=== PATIENT | male | born 1950 | race Caucasian/White ===

== ENCOUNTER → 2016-11-06 | Outpatient (CLI) | payer OTHER, MEDICARE ==
[~2016-11-06] MED LIST: ASPCH81 PO; ATOR10TA88 PO; COEN1CAP17 PO; FOLI1TAB7 PO; MULT-506 PO
== END | disposition home or self-care (01) ==
LOC: C.LABPVFM 13:55
PROVIDERS: ATTEND Urology
DX: N40.1 Benign prostatic hyperplasia with lower urinary tract symptoms (principal); E72.11 Homocystinuria; E78.5 Hyperlipidemia, unspecified; R73.01 Impaired fasting glucose; N52.9 Male erectile dysfunction, unspecified; E80.4 Gilbert syndrome; Z13.29 Encounter for screening for other suspected endocrine disorder

== ENCOUNTER → 2016-11-20 | Outpatient (CLI) | payer OTHER, MEDICARE ==
[2016-11-20 12:40] LABS: ALT/SGPT 36 U/L (12-78); BLOOD UREA NITROGEN 20 mg/dl (7-18); BUN/CREATININE RATIO 17.8 (10-20); CALCIUM 8.8 mg/dl (8.5-10.1); CARBON DIOXIDE 27 mmol/L (21-32); CHLORIDE 106 mmol/L (98-107); GLUCOSE 95 mg/dl (70-99); POTASSIUM 4.2 mmol/L (3.5-5.1); SODIUM 141 mmol/L (136-145)
[2016-11-20 12:43] LABS: ALB/GLOB RATIO 1.2 (0.9-2); ALKALINE PHOSPHATASE 39 U/L (45-117); AST/SGOT 22 U/L (15-37)
[2016-11-20 12:49] LABS: CHOLESTEROL/HDL RATIO 2.1; THYROID STIMULATING HORMONE 2.28 uIu/ml (0.300-4.500)
== END | disposition home or self-care (01) ==
LOC: C.LABPVFM 08:27
PROVIDERS: ATTEND Family Medicine
DX: N52.9 Male erectile dysfunction, unspecified (principal); E80.4 Gilbert syndrome; E72.11 Homocystinuria; R73.01 Impaired fasting glucose; Z13.29 Encounter for screening for other suspected endocrine disorder; E78.5 Hyperlipidemia, unspecified; N39.0 Urinary tract infection, site not specified; R73.09 Other abnormal glucose

== ENCOUNTER → 2016-12-14 | Outpatient (CLI) | payer OTHER, MEDICARE | END | disposition home or self-care (01) | LOC: C.LABPVFM 15:39 | PROVIDERS: ATTEND Family Medicine | DX: R05 Cough (principal) ==

== ENCOUNTER → 2017-06-03 | Outpatient (CLI) | payer OTHER, MEDICARE ==
--- NOTE | 2017-06-06 10:21 | MYOCARDIAL PERFUSION SCAN ---
ONE-DAY NUCLEAR MEDICINE TECHNETIUM-99M CARDIOLITE MYOCARDIAL PERFUSION SCAN CLINICAL HISTORY: The patient has experienced a chest pain syndrome and has a strong family history of coronary artery disease. COMPARISON: None. TECHNIQUE: For the stress portion of the study, 32.2 mCi of Technetium 99 m Cardiolite IV was injected at 11:35 a.m. on 06/03/2017. Fifteen minutes following the injection, imaging of the heart was performed in multiple projections. For the rest portion of the study, 10.7 mCi of Technetium 99 m Cardiolite was injected IV at 9:35 a.m. One hour following the injection, imaging of the heart was performed in the same projections. EXERCISE TREADMILL TESTING: The patient exercised for 11 minutes and 46 seconds on a standard Bo protocol attaining 13.4 METS and a peak heart rate of 142 beats per minute (94% predicted maximum). The test was terminated due to fatigue. The patient did not experience chest discomfort. Initial blood pressure is 120/70 and this increased to 145/60 at peak exertion. Baseline EKG shows normal sinus rhythm with early repolarization. There are no ST segment changes seen with exercise. There are no dysrhythmias. FINDINGS: The short axis, vertical long axis, and horizontal long axis images were reviewed in detail. There is a small perfusion defect noted in the proximal, mid inferior wall present at both stress and rest. This demonstrates normal systolic function and the rotating images suggest that this is diaphragmatic attenuation, and not a prior myocardial infarction. The left ventricle demonstrates normal systolic function without wall motion abnormality. An estimated left ventricular ejection fraction is 68%. CONCLUSIONS: 1. No definite scintigraphic evidence of a prior myocardial infarction or stress induced myocardial ischemia. 2. Diaphragmatic attenuation noted. 3. No exercise induced chest pain. 4. Normal left ventricular systolic function with an ejection fraction of 68% and no wall motion abnormalities.
== END | disposition home or self-care (01) ==
LOC: C.NUCL 09:18
PROVIDERS: ATTEND Family Medicine
DX: R07.9 Chest pain, unspecified (principal)

== ENCOUNTER → 2017-06-25 | Outpatient (CLI) | payer OTHER, MEDICARE ==
[2017-06-25 12:58] LABS: ALT/SGPT 25 U/L (12-78); BLOOD UREA NITROGEN 16 mg/dl (7-18); BUN/CREATININE RATIO 14.9 (10-20); CALCIUM 9.4 mg/dl (8.5-10.1); CARBON DIOXIDE 28 mmol/L (21-32); CHLORIDE 105 mmol/L (98-107); CHOLESTEROL 142 mg/dl (0-200); GLUCOSE 96 mg/dl (70-99); POTASSIUM 4.2 mmol/L (3.5-5.1); SODIUM 140 mmol/L (136-145)
[2017-06-25 13:01] LABS: ALB/GLOB RATIO 1.3 (0.9-2); ALKALINE PHOSPHATASE 31 U/L (45-117); AST/SGOT 21 U/L (15-37); CHOLESTEROL/HDL RATIO 1.8; HDL CHOLESTEROL 77 mg/dl; LDL CHOLESTEROL CALCULATED 55 mg/dl; TRIGLYCERIDES 50 mg/dl (0-150); VERY LOW DENSITY LIPOPROT CALC 10 mg/dl
[2017-06-27 07:01] LABS: METHYLMALONIC ACID 157 NMOL/L (87-318)
== END | disposition home or self-care (01) ==
LOC: C.LABPVFM 09:52
PROVIDERS: ATTEND Family Medicine
DX: E72.11 Homocystinuria (principal); E78.5 Hyperlipidemia, unspecified; M79.89 Other specified soft tissue disorders

== ENCOUNTER → 2017-07-31 | Outpatient (CLI) | payer OTHER, MEDICARE ==
[~2017-07-31] MED LIST changes: +ATOR10TA82 PO; -ATOR10TA88 PO
== END | disposition home or self-care (01) ==
LOC: C.MAMM 10:49
PROVIDERS: ATTEND Family Medicine
DX: Z13.820 Encounter for screening for osteoporosis (principal)

== ENCOUNTER → 2017-10-06 | Outpatient (CLI) | payer OTHER, MEDICARE ==
[~2017-10-06] MED LIST changes: -FOLI1TAB7 PO; +FOLI1TAB8 PO
== END | disposition home or self-care (01) ==
LOC: C.LABPVFM 15:55
PROVIDERS: ATTEND Family Medicine
DX: R74.8 Abnormal levels of other serum enzymes (principal)

== ENCOUNTER → 2017-10-07 | Outpatient (CLI) | payer OTHER, MEDICARE | END | disposition home or self-care (01) | LOC: C.LABPVFM 10:03 | PROVIDERS: ATTEND Family Medicine | DX: R74.8 Abnormal levels of other serum enzymes (principal) ==

== ENCOUNTER → 2017-12-22 | Outpatient (CLI) | payer OTHER, MEDICARE ==
[2017-12-22 13:40] LABS: BASO % 0.3 %; BASO ABS # 0.01 K/uL (0-0.2); EOS % 1.3 %; EOS ABS # 0.05 K/uL (0-0.5); HEMATOCRIT 43.1 % (42-52); HEMOGLOBIN 14.5 g/dL (14.0-18.0); IG# 0.01 K/uL (0.00-0.02); LYMPH % 29.4 %; LYMPH ABS # 1.15 K/uL (1.2-3.4); MEAN CELL VOLUME 99.5 fL (80-100); MEAN CORPUSCULAR HEMOGLOBIN 33.5 pg (25-34); MEAN CORPUSCULAR HGB CONC 33.6 g/dl (32-36); MEAN PLATELET VOLUME 11.4 fL (7.4-10.4); MONO % 8.4 %; MONO ABS # 0.33 K/uL (0.11-0.59); NEUT % 60.3 %; NEUT ABS # 2.36 K/uL (1.4-6.5); PLATELET COUNT 260 K/uL (130-400); RED CELL DISTRIBUTION WIDTH CV 12.4 % (11.5-14.5); RED CELL DISTRIBUTION WIDTH SD 45.7 fL (36.4-46.3); WHITE BLOOD COUNT 3.91 K/uL (4.8-10.8)
[2017-12-22 15:35] LABS: ALBUMIN 3.9 gm/dl (3.4-5.0); ALT/SGPT 21 U/L (12-78); AST/SGOT 20 U/L (15-37); BLOOD UREA NITROGEN 19 mg/dl (7-18); CALCIUM 9.2 mg/dl (8.5-10.1); CARBON DIOXIDE 26 mmol/L (21-32); CREATININE 1.19 mg/dl (0.60-1.40); GLUCOSE 104 mg/dl (70-99); POTASSIUM 3.9 mmol/L (3.5-5.1); SODIUM 139 mmol/L (136-145)
[2017-12-22 15:39] LABS: ALKALINE PHOSPHATASE 30 U/L (45-117); CHOLESTEROL 123 mg/dl (0-200); LDL CHOLESTEROL CALCULATED 44 mg/dl; TRANSFERRIN 204 mg/dl (200-360)
== END | disposition home or self-care (01) ==
LOC: C.LABPVFM 09:57
PROVIDERS: ATTEND Family Medicine
DX: N40.1 Benign prostatic hyperplasia with lower urinary tract symptoms (principal); M54.5 Low back pain; E72.11 Homocystinuria; E78.5 Hyperlipidemia, unspecified; E80.4 Gilbert syndrome; R74.8 Abnormal levels of other serum enzymes; R53.83 Other fatigue

== ENCOUNTER → 2018-02-06 | Outpatient (CLI) | payer OTHER, MEDICARE ==
[2018-02-06 18:04] LABS: ALBUMIN 3.8 gm/dl (3.4-5.0); ALKALINE PHOSPHATASE 35 U/L (45-117); ALT/SGPT 28 U/L (12-78); AST/SGOT 21 U/L (15-37); BLOOD UREA NITROGEN 21 mg/dl (7-18); CALCIUM 8.6 mg/dl (8.5-10.1); CARBON DIOXIDE 30 mmol/L (21-32); CREATININE 1.14 mg/dl (0.60-1.40); GLUCOSE 92 mg/dl (70-99); POTASSIUM 4.1 mmol/L (3.5-5.1); SODIUM 140 mmol/L (136-145); TOTAL PROTEIN 7.3 gm/dl (6.4-8.2); TRANSFERRIN 238 mg/dl (200-360)
== END | disposition home or self-care (01) ==
LOC: C.LABPVFM 12:00
PROVIDERS: ATTEND Internal Medicine
DX: E80.4 Gilbert syndrome (principal); E83.19 Other disorders of iron metabolism